=== PATIENT | female | born 1995 | race Two or more races ===

== ENCOUNTER 2024-02-17 02:43 | Emergency (ER) | payer OTHER ==
[2024-02-15] MEDS: ACETAMINOPHEN 325MG TABLET PO STA (04:47)
[~2024-02-17] VITALS: Ht 162.6 cm; Wt 62.0 kg
[2024-02-17 02:45] VITALS: O2SAT 98
[2024-02-17 04:18] LABS: BASOPHILS % 0.5 % (0.0-2.0); EOSINOPHILS % 1.4 % (0.0-5.0); HEMATOCRIT. 40.4 % (36.0-48.0); HEMOGLOBIN. 13.5 g/dL (12.0-16.0); LYMPHOCYTES % 25.1 % (20.0-50.0); MEAN CORPUSCULAR HEMOGLOBIN 30.3 pg (28.0-32.0); MEAN CORPUSCULAR HGB CONC 33.4 g/dL (31.0-37.0); MEAN CORPUSCULAR VOLUME 90.7 fL (81.0-99.0); MEAN PLATELET VOLUME 7.7 fl (7.4-10.4); MONOCYTES % 7.9 % (2.0-8.0); NEUTROPHILS % 65.1 % (40.0-76.0); PLATELET 293 x1000/uL (130-400); RED BLOOD CELL COUNT 4.46 mill/uL (4.2-5.4); RED CELL DISTRIBUTION WIDTH 13.7 % (11.6-14.6); WHITE BLOOD COUNT 8.2 x1000/uL (4.5-11.0)
[2024-02-17 04:24] LABS: CHLORIDE 108 mEq/L (98-107); POTASSIUM 3.8 mEq/L (3.5-5.1); SODIUM 138 mEq/L (136-145)
[2024-02-17 04:25] LABS: CALCIUM 9.1 mg/dL (8.7-10.4); CARBON DIOXIDE 27 mEq/L (21-32)
[2024-02-17 04:30] LABS: CREATININE 0.7 mg/dL (0.6-1.0); GLUCOSE 104 mg/dL (70-105); UREA NITROGEN BLOOD 8 mg/dL (9-23)
[2024-02-17 04:32] LABS: ALANINE AMINOTRANSFERASE 9 IU/L (10-49); ALBUMIN 4.3 g/dL (3.2-4.8); ASPARTATE AMINOTRANSFERASE 14 IU/L (<34); BILIRUBIN TOTAL 0.3 mg/dL (0.1-1.0)
[2024-02-17 04:33] LABS: PROTEIN TOTAL 7.1 g/dL (6.0-8.3)
[2024-02-17 04:34] LABS: HCG SCREEN NEGATIVE
[2024-02-17 04:44] LABS: BILIRUBIN DIRECT < 0.1 mg/dL (<=3.0)
[2024-02-17] MEDS ORDERED: NAPR-1176 MT (05:40)
[2024-02-17 06:00] VITALS: BP 127/88; PULSE 72; RESP 22; TEMP 98
== END 2024-02-17 06:00 | disposition home or self-care (01) ==
LOC: ER 02:43
DX: N83.291 Other ovarian cyst, right side (principal); R10.2 Pelvic and perineal pain
CPT/HCPCS: 36415; 76830; 76856; 80048; 80076; 83605; 84703; 85025; 99284